=== PATIENT | female | born 1995 | race Caucasian/White ===

== ENCOUNTER 2019-12-21 16:05 | Emergency (ER) | payer MEDICAID, OTHER ==
[~2019-12-21] VITALS: Ht 157.5 cm; Wt 54.4 kg
[2019-12-21 16:54] VITALS: BP 106/69
--- NOTE | 2019-12-21 17:01 | NUR ---
running upstairs at home tripped and injured right 5th 4th and 3rd digits---slight swelling discoloration tender---<3 sec cap refill
[2019-12-21 18:29] VITALS: BP 116/69
--- NOTE | 2019-12-21 18:31 | NUR ---
Patient discharged with v/s stable. Written and verbal after care instructions given and explained. Patient alert, oriented and verbalized understanding of instructions. Ambulatory with steady gait. All questions addressed prior to discharge. ID band removed. Patient advised to follow up with PMD. Rx of tylenol es given. Patient educated on indication of medication including possible reaction and side effects. Opportunity to ask questions provided and answered.
== END 2019-12-21 18:29 | disposition home or self-care (01) ==
LOC: MED 16:05
DX: S62.664A Nondisplaced fracture of distal phalanx of right ring finger, initial encounter for closed fracture (principal); S62.666A Nondisplaced fracture of distal phalanx of right little finger, initial encounter for closed fracture; Z90.09 Acquired absence of other part of head and neck; Z96.662 Presence of left artificial ankle joint; W01.0XXA Fall on same level from slipping, tripping and stumbling without subsequent striking against object, initial encounter; Y93.89 Activity, other specified; Y92.89 Other specified places as the place of occurrence of the external cause; Y99.8 Other external cause status
CPT/HCPCS: 73130; 99283